=== PATIENT | female | born 1985 | race Asian ===

== ENCOUNTER → 2018-02-04 | Outpatient (CLI) | payer OTHER | END | disposition home or self-care (01) | LOC: RAD 12:31 | PROVIDERS: ATTEND Nurse Practitioner Family | DX: N83.202 Unspecified ovarian cyst, left side (principal); N83.201 Unspecified ovarian cyst, right side; N91.2 Amenorrhea, unspecified; N91.5 Oligomenorrhea, unspecified | CPT/HCPCS: 76830 ==